=== PATIENT | male | born 1980 | race African-American/Black ===

== ENCOUNTER 2016-07-30 10:22 | Inpatient (IN) | payer OTHER ==
[2016-07-30 10:45] VITALS: BMI 25.8
--- NOTE | 2016-07-30 12:46 | HP ---
Admission [facility] Chief Complaint: REHAB TX FOR ALCOHOL DEPENDENCE Allergies/Adverse Reactions: Allergies Allergy/AdvReac Type Severity Reaction Status Date / Time lactose AdvReac indigestion Verified 07/30/16 11:12 NKDA Allergy Uncoded 07/30/16 11:12 History of Present Illness: 35 Y/O AA/MALE WITH A HX OF ALCOHOL DEPENDENCE SEEKING REHAB TX Exam Limitations: No Limitations - Ebola screening Have you traveled outside of the country in the last 21 days: No Have you had contact with anyone from an Ebola affected area: No Have you been sick,other than usual withdrawal symptoms: No Do you have a fever: No - Review of Systems Constitutional: No Symptoms Reported EENT: reports: Blurred Vision, Tearing (DUE TO ALLERGIES), Nose Congestion (DUE TO ALLERGIES), Dental Problems (BRACES IN PLACE.) Respiratory: reports: No Symptoms reported Cardiac: reports: Lightheadedness GI: reports: Diarrhea, Nausea, Poor Fluid Intake, Vomiting : reports: No Symptoms Reported Musculoskeletal: reports: Back Pain, Joint Pain, Muscle Pain Integumentary: reports: Dryness, Pruritus Neuro: reports: Headache Endocrine: reports: No Symptoms Reported Hematology: reports: No Symptoms Reported Psychiatric: reports: Orientated x3, Anxious Other Systems: Reviewed and Negative Patient History - Patient Medical History Hx Anemia: No Hx Asthma: No Hx Chronic Obstructive Pulmonary Disease (COPD): No Hx Cardiac Disorders: No Hx Hypertension: No Hx Hypercholesterolemia: No HX Cerebrovascular Accident: No Hx Seizures: No Hx Diabetes: No Hx Gastrointestinal Disorders: No Hx Genitourinary Disorders: Yes (HX UTI) Hx Sexually Transmitted Disorders: Yes (HX STD) Hx Renal Disease (ESRD): No Hx Thyroid Disease: Yes (HYPERTHYROID--ON TAPAZOLE) Hx Human Immunodeficiency Virus (HIV): No (NEGATIVE HX) Hx Hepatitis C: No Hx Depression: No Hx Suicide Attempt: No (DENIES) Hx Bipolar Disorder: No Hx Schizophrenia: No - Patient Surgical History Past Surgical History: No Hx Neurologic Surgery: No Hx Cataract Extraction: No Hx Cardiac Surgery: No Hx Lung Surgery: No Hx Breast Surgery: No Hx Breast Biopsy: No Hx Abdominal Surgery: No Hx Appendectomy: No Hx Cholecystectomy: No Hx Genitourinary Surgery: No Hx Orthopedic Surgery: No Anesthesia Reaction: No - PPD History Previous Implant?: Yes (LAST GIVE IN [facility]) Documented Results: Negative w/o proof Implanted On Prior R Admission?: No PPD to be Administered?: Yes - Reproductive History Patient is a Female of Child Bearing Age (11 -55 yrs old): No (MALE) - Smoking Cessation Smoking history: Never smoked Have you smoked in the past 12 months: No Aproximately how many cigarettes per day: 0 Hx Chewing Tobacco Use: No Initiated information on smoking cessation: No - Substance & Tx. History Hx Alcohol Use: Yes (BEER/WINE/LIQUOR) Substance Use Type: Alcohol Hx Substance Use Treatment: Yes ([facility]) - Substances Abused Alcohol Route: Oral Frequency: 1-2 times per week Amount used: 2 12oz//2 PT Age of first use: 16 Date of Last Use: 06/03/16 Family Disease History - Family Disease History Family Disease History: Diabetes: Father, Respiratory: Mother (EMPHYSEMA) Admission Physical Exam [facility] - Vital Signs Vital Signs: Vital Signs - 24 hr 07/30/16 10:41 Temperature 97.4 F L Pulse Rate 62 Respiratory 18 Rate Blood Pressure 114/69 - Physical General Appearance: Yes: No Apparent Distress, Irritable, Anxious HEENTM: Yes: EOMI, Normocephalic, SHILO, Pharynx Normal Respiratory: Yes: Chest Non-Tender, Lungs Clear, Normal Breath Sounds, No Respiratory Distress Neck: Yes: Supple, Trachea in good position Breast: Yes: Breast Exam Deferred Cardiology: Yes: Regular Rhythm, Regular Rate, S1, S2 Abdominal: Yes: Normal Bowel Sounds, Non Tender, Soft Genitourinary: Yes: Other (N/C) Back: Yes: Within Normal Limits Musculoskeletal: Yes: full range of Motion, Gait Steady Extremities: Yes: Normal Range of Motion, Non-Tender 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
[2016-07-30] MEDS ORDERED: MAG HYDROX/AL HYDROX/SIMETH 30 ML UNIT-DOSE CUP PO PRN (12:59)
[2016-07-30] MEDS ORDERED: hydrOXYzine PAMOATE 25 MG CAPSULE (FP) PO PRN (12:59)
[2016-07-30] MEDS ORDERED: guaiFENesin/D-METHORPHAN HB 10 ML UNIT-DOSE CUPS PO PRN (12:59)
[2016-07-30] MEDS ORDERED: LOPERAMIDE HCL 2 MG CAPSULE PO PRN (12:59)
[2016-07-30] MEDS ORDERED: diphenhydrAMINE HCL 50 MG CAPSULE PO PRN (12:59)
[2016-07-30] MEDS ORDERED: P-EPHED 60MG/TRIPROLIDI 2.5MG TABLET PO PRN (12:59)
[2016-07-30] MEDS ORDERED: MAGNESIUM CITRATE 300 ML BOTTLE PO PRN (12:59)
[2016-07-30] MEDS ORDERED: MENTHOL/PHENOL 1 EACH UD MM PRN (12:59)
[2016-07-30] MEDS ORDERED: ACETAMINOPHEN 325 MG TABLET (FP) PO PRN (12:59)
[2016-07-30] MEDS ORDERED: MAGNESIUM HYDROX 2400MG/30ML ORAL SUSPENSION 30 ML CUP PO PRN (12:59)
[2016-07-30] MEDS ORDERED: IBUPROFEN 400 MG TABLET (FP) PO PRN (12:59)
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
[2016-07-30 14:57] LABS: MCH 29.2 pg (25.7-33.7); MCHC 34.2 g/dl (32.0-35.9); MEAN CELL VOLUME 85.6 fl (80-96); PLATELET COUNT 144 K/MM3 (134-434); WHITE BLOOD COUNT 5.3 K/mm3 (4.0-10.0)
[2016-07-30 15:12] LABS: SICKLE CELL SCREEN NEGATIVE (NEGATIVE)
[2016-07-30 15:32] LABS: ALBUMIN 4.2 g/dl (3.4-5.0); ALK PHOS 68 U/L (45-117); ANION GAP 10 (8-16); BILIRUBIN,TOTAL 0.7 mg/dL (0.2-1.0); CALCIUM 9.1 mg/dL (8.5-10.1); CO2 28 mmol/L (21-32); CREATININE 1.1 mg/dL (0.7-1.3); GLUCOSE,RANDOM 99 mg/dL (74-106); SGOT/AST 23 U/L (15-37); SGPT/ALT 26 U/L (12-78); TOT PROT 7.4 g/dl (6.4-8.2)
--- NOTE | 2016-07-30 16:23 | EKG ---
Test Reason : Blood Pressure : / mmHG Vent. Rate : 064 BPM Atrial Rate : 064 BPM P-R Int : 186 ms QRS Dur : 096 ms QT Int : 410 ms P-R-T Axes : 036 059 080 degrees QTc Int : 422 ms POOR DATA QUALITY, INTERPRETATION MAY BE ADVERSELY AFFECTED NORMAL SINUS RHYTHM NORMAL ECG WHEN COMPARED WITH ECG OF 09-AUG-2015 23:41, CRITERIA FOR SEPTAL INFARCT ARE NO LONGER PRESENT Confirmed by ANGELINA SHIPLEY, URIAH ([id number]) on 07/30/2016 4:23:12 PM Referred By: Payal Hines Confirmed By:URIAH ALFARO MD
[2016-07-30 16:40] LABS: URINE APPEARANCE CLEAR; URINE BILIRUBIN NEGATIVE (NEGATIVE); URINE BLOOD NEGATIVE (NEGATIVE); URINE COLOR YELLOW; URINE GLUCOSE (UA) NEGATIVE (NEGATIVE); URINE KETONE NEGATIVE (NEGATIVE); URINE LEUK ESTERASE NEGATIVE (NEGATIVE); URINE NITRITE NEGATIVE (NEGATIVE); URINE PROTEIN NEGATIVE (NEGATIVE); URINE UROBILINOGEN NEGATIVE E.U./dl (0.2-1.0)
[2016-07-30] MEDS: THIAMINE HCL 100 MG TABLET (FP) PO SCH (22:33)
[2016-07-31] MEDS: PRENATAL VITAMINS W/ FOLIC ACID TABLET (FP) PO SCH (09:41)
[2016-07-31] MEDS: METHIMAZOLE PO SCH (09:41)
--- NOTE | 2016-07-31 11:06 | PN ---
[facility] Progress Note Note: mild pain in left knee,ambulation no limitation,movemant no limitation, treatment advise progressiv exercise
[2016-07-31] MEDS: THIAMINE HCL 100 MG TABLET (FP) PO SCH (21:56)
[2016-08-01] MEDS ORDERED: PT OWN MED DRAWER 7, Y5N ONE (08:54)
[2016-08-01] MEDS: METHIMAZOLE PO SCH (09:37)
[2016-08-01] MEDS: PRENATAL VITAMINS W/ FOLIC ACID TABLET (FP) PO SCH (09:37)
[2016-08-01] MEDS: THIAMINE HCL 100 MG TABLET (FP) PO SCH (22:23)
[2016-08-02] MEDS ORDERED: PT OWN MED DRAWER 7, Y5N ONE (08:49)
[2016-08-02] MEDS: PRENATAL VITAMINS W/ FOLIC ACID TABLET (FP) PO SCH (09:37)
[2016-08-02] MEDS: METHIMAZOLE PO SCH (09:37)
[2016-08-02] MEDS: THIAMINE HCL 100 MG TABLET (FP) PO SCH (23:22)
[2016-08-03] MEDS ORDERED: PT OWN MED DRAWER 7, Y5N ONE (08:40)
[2016-08-03] MEDS: PRENATAL VITAMINS W/ FOLIC ACID TABLET (FP) PO SCH (09:51)
[2016-08-03] MEDS: METHIMAZOLE PO SCH (09:51)
[2016-08-03] MEDS: THIAMINE HCL 100 MG TABLET (FP) PO SCH (21:53)
[2016-08-04] MEDS ORDERED: PT OWN MED DRAWER 7, Y5N ONE (08:51)
[2016-08-04] MEDS: PRENATAL VITAMINS W/ FOLIC ACID TABLET (FP) PO SCH (09:45)
[2016-08-04] MEDS: METHIMAZOLE PO SCH (09:45)
[2016-08-04] MEDS: THIAMINE HCL 100 MG TABLET (FP) PO SCH (23:06)
[2016-08-05] MEDS ORDERED: PT OWN MED DRAWER 7, Y5N ONE (08:56)
[2016-08-05] MEDS: PRENATAL VITAMINS W/ FOLIC ACID TABLET (FP) PO SCH (09:46)
[2016-08-05] MEDS: METHIMAZOLE PO SCH (09:47)
[2016-08-05] MEDS: THIAMINE HCL 100 MG TABLET (FP) PO SCH (22:48)
[2016-08-06] MEDS: PRENATAL VITAMINS W/ FOLIC ACID TABLET (FP) PO SCH (09:52)
[2016-08-06] MEDS ORDERED: PT OWN MED DRAWER 7, Y5N ONE (09:53)
[2016-08-06] MEDS: METHIMAZOLE PO SCH (09:53)
[2016-08-06] MEDS: THIAMINE HCL 100 MG TABLET (FP) PO SCH (23:09)
[2016-08-07] MEDS: METHIMAZOLE PO SCH (09:37)
[2016-08-07] MEDS: PRENATAL VITAMINS W/ FOLIC ACID TABLET (FP) PO SCH (09:37)
[2016-08-07] MEDS ORDERED: PT OWN MED DRAWER 7, Y5N ONE (09:38)
[2016-08-07] MEDS: THIAMINE HCL 100 MG TABLET (FP) PO SCH (22:24)
[2016-08-08] MEDS ORDERED: PT OWN MED DRAWER 7, Y5N ONE (08:37)
[2016-08-08] MEDS: PRENATAL VITAMINS W/ FOLIC ACID TABLET (FP) PO SCH (09:37)
[2016-08-08] MEDS: METHIMAZOLE PO SCH (09:37)
[2016-08-08] MEDS: THIAMINE HCL 100 MG TABLET (FP) PO SCH (23:06)
[2016-08-09] MEDS ORDERED: PT OWN MED DRAWER 7, Y5N ONE (08:38)
[2016-08-09] MEDS: PRENATAL VITAMINS W/ FOLIC ACID TABLET (FP) PO SCH (09:37)
[2016-08-09] MEDS: METHIMAZOLE PO SCH (09:37)
[2016-08-09] MEDS: THIAMINE HCL 100 MG TABLET (FP) PO SCH (22:24)
[2016-08-10] MEDS ORDERED: PT OWN MED DRAWER 7, Y5N ONE (08:40)
[2016-08-10] MEDS: PRENATAL VITAMINS W/ FOLIC ACID TABLET (FP) PO SCH (09:48)
[2016-08-10] MEDS: METHIMAZOLE PO SCH (09:48)
[2016-08-10] MEDS: THIAMINE HCL 100 MG TABLET (FP) PO SCH (22:24)
[2016-08-11] MEDS: PRENATAL VITAMINS W/ FOLIC ACID TABLET (FP) PO SCH (09:55)
[2016-08-11] MEDS: METHIMAZOLE PO SCH (09:56)
[2016-08-11] MEDS: THIAMINE HCL 100 MG TABLET (FP) PO SCH (23:18)
[2016-08-12] MEDS: METHIMAZOLE 10 MG TABLET (FP) PO SCH (11:00)
[2016-08-12] MEDS: PRENATAL VITAMINS W/ FOLIC ACID TABLET (FP) PO SCH (11:00)
[2016-08-12] MEDS: THIAMINE HCL 100 MG TABLET (FP) PO SCH (22:04)
[2016-08-13] MEDS: METHIMAZOLE 10 MG TABLET (FP) PO SCH (09:43)
[2016-08-13] MEDS: PRENATAL VITAMINS W/ FOLIC ACID TABLET (FP) PO SCH (09:43)
[2016-08-13] MEDS: THIAMINE HCL 100 MG TABLET (FP) PO SCH (23:16)
[2016-08-14] MEDS: PRENATAL VITAMINS W/ FOLIC ACID TABLET (FP) PO SCH (09:56)
[2016-08-14] MEDS: METHIMAZOLE 10 MG TABLET (FP) PO SCH (09:56)
[2016-08-14] MEDS: THIAMINE HCL 100 MG TABLET (FP) PO SCH (23:06)
[2016-08-15] MEDS: METHIMAZOLE 10 MG TABLET (FP) PO SCH (09:35)
[2016-08-15] MEDS: PRENATAL VITAMINS W/ FOLIC ACID TABLET (FP) PO SCH (09:35)
[2016-08-15] MEDS: THIAMINE HCL 100 MG TABLET (FP) PO SCH (21:59)
[2016-08-16] MEDS: METHIMAZOLE 10 MG TABLET (FP) PO SCH (09:40)
[2016-08-16] MEDS: PRENATAL VITAMINS W/ FOLIC ACID TABLET (FP) PO SCH (09:40)
[2016-08-16] MEDS: THIAMINE HCL 100 MG TABLET (FP) PO SCH (22:16)
[2016-08-17] MEDS: PRENATAL VITAMINS W/ FOLIC ACID TABLET (FP) PO SCH (10:04)
[2016-08-17] MEDS: METHIMAZOLE 10 MG TABLET (FP) PO SCH (10:04)
[2016-08-17] MEDS ORDERED: COLLOIDAL OATMEAL 1 BAR EACH TP PRN (14:06)
[2016-08-17] MEDS: THIAMINE HCL 100 MG TABLET (FP) PO SCH (21:52)
[2016-08-18] MEDS: METHIMAZOLE 10 MG TABLET (FP) PO SCH (09:45)
[2016-08-18] MEDS: PRENATAL VITAMINS W/ FOLIC ACID TABLET (FP) PO SCH (09:45)
[2016-08-18] MEDS: THIAMINE HCL 100 MG TABLET (FP) PO SCH (22:51)
[2016-08-19] MEDS: PRENATAL VITAMINS W/ FOLIC ACID TABLET (FP) PO SCH (09:33)
[2016-08-19] MEDS: METHIMAZOLE 10 MG TABLET (FP) PO SCH (09:33)
[2016-08-19] MEDS: THIAMINE HCL 100 MG TABLET (FP) PO SCH (23:37)
[2016-08-20] MEDS: PRENATAL VITAMINS W/ FOLIC ACID TABLET (FP) PO SCH (10:29)
[2016-08-20] MEDS: METHIMAZOLE 10 MG TABLET (FP) PO SCH (10:29)
[2016-08-20] MEDS: THIAMINE HCL 100 MG TABLET (FP) PO SCH (23:25)
[2016-08-21] MEDS: PRENATAL VITAMINS W/ FOLIC ACID TABLET (FP) PO SCH (09:52)
[2016-08-21] MEDS: METHIMAZOLE 10 MG TABLET (FP) PO SCH (09:54)
[2016-08-21] MEDS ORDERED: PT OWN MED DRAWER 7, Y5N ONE (11:06)
[2016-08-21] MEDS: THIAMINE HCL 100 MG TABLET (FP) PO SCH (22:32)
[2016-08-22] MEDS: PRENATAL VITAMINS W/ FOLIC ACID TABLET (FP) PO SCH (09:46)
[2016-08-22] MEDS: METHIMAZOLE 10 MG TABLET (FP) PO SCH (09:46)
[2016-08-22] MEDS: THIAMINE HCL 100 MG TABLET (FP) PO SCH (22:26)
[2016-08-23] MEDS: METHIMAZOLE 10 MG TABLET (FP) PO SCH (10:04)
[2016-08-23] MEDS: PRENATAL VITAMINS W/ FOLIC ACID TABLET (FP) PO SCH (10:04)
[2016-08-23] MEDS: THIAMINE HCL 100 MG TABLET (FP) PO SCH (22:42)
[2016-08-24] MEDS: PRENATAL VITAMINS W/ FOLIC ACID TABLET (FP) PO SCH (09:49)
[2016-08-24] MEDS: METHIMAZOLE 10 MG TABLET (FP) PO SCH (09:49)
[2016-08-24] MEDS: THIAMINE HCL 100 MG TABLET (FP) PO SCH (22:07)
[2016-08-25] MEDS: PRENATAL VITAMINS W/ FOLIC ACID TABLET (FP) PO SCH (09:52)
[2016-08-25] MEDS: METHIMAZOLE 10 MG TABLET (FP) PO SCH (09:53)
[2016-08-25] MEDS: THIAMINE HCL 100 MG TABLET (FP) PO SCH (22:16)
[2016-08-26] MEDS: METHIMAZOLE 10 MG TABLET (FP) PO SCH (09:51)
[2016-08-26] MEDS: PRENATAL VITAMINS W/ FOLIC ACID TABLET (FP) PO SCH (09:51)
--- NOTE | 2016-08-26 09:54 | PN ---
Psychiatric Progress Note Vital Signs: Vital Signs Period Temp Pulse Resp BP Sys/Harding Pulse Ox Last 24 Hr 97.7 F 81 18-18 143/78 Date of Session: 08/26/16 Chief Complaint:: Psychiatrist Discharge Note HPI: Patient addressing Alcohol Dependence comorbid with MDD, recurrent in full remission ROS: Hyperthyroidism were medically managed Current Medications: Active Medications Generic Name Dose Route Start Last Admin Trade Name Freq PRN Reason Stop Dose Admin Acetaminophen 650 mg 07/30/16 12:59 Tylenol - PO Q4H PRN PAIN Al Hydroxide/Mg Hydroxide 30 ml 07/30/16 12:59 Mylanta Oral Suspension - PO Q6H PRN DYSPEPSIA Colloidal Oatmeal 1 applic 08/17/16 14:06 08/17/16 22:00 Aveeno Soap - TP 1 applic DAILY PRN Administration HYGEINE Diphenhydramine HCl 50 mg 07/30/16 12:59 Benadryl - PO HSMR1 PRN INSOMNIA Eucalyptus/Menthol/Phenol/Sorbitol 1 each 07/30/16 12:59 Cepastat Lozenge - MM Q4H PRN SORE THROAT Guaifenesin 10 ml 07/30/16 12:59 Robitussin Dm - PO Q6H PRN COUGH Hydroxyzine Pamoate 25 mg 07/30/16 12:59 08/08/16 17:26 Vistaril - PO 25 mg Q4H PRN Administration AGITATION Ibuprofen 400 mg 07/30/16 12:59 Motrin - PO Q6H PRN SEVERE PAIN Loperamide HCl 4 mg 07/30/16 12:59 Imodium - PO Q6H PRN DIARRHEA Magnesium Citrate 300 ml 07/30/16 12:59 Citroma - PO Q48H PRN CONSTIPATION Magnesium Hydroxide 30 ml 07/30/16 12:59 Milk Of Magnesia - PO DAILY PRN CONSTIPATION Methimazole 10 mg 08/12/16 10:00 08/25/16 09:53 Tapazole - PO 10 mg DAILY RENNY Administration Multivit/Folic Acid/Iron 1 tab 07/31/16 10:00 08/25/16 09:52 Vitamins (Sjr) - PO 1 tab DAILY RENNY Administration Pseudoephedrine/Triprolidine 1 combo 07/30/16 12:59 Actifed - PO TID PRN NASAL CONGESTION Thiamine HCl 100 mg 07/30/16 22:00 08/25/16 22:16 Vitamin B1 - PO Not Given HS RENNY Current Side Effect: No Lab tests ordered: Yes Lab tests reviewed: Yes Provider note:: Patient will complete this program on 08/27/16. He has met his treatment goals and will continue to address his issues at outpatient treatment at [facility]. 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 He said that he has to find a way to stay clean in order to get these people off his back. He is stable for discharge on 08/27/16 Total face to face time:: 35 Psychiatric Treatment Plan - Problem List (1) Alcohol dependence with uncomplicated withdrawal Current Visit: Yes (2) MDD (major depressive disorder), recurrent, in full remission Current Visit: Yes (3) Hyperthyroidism Current Visit: Yes (4) Sexually transmitted disease Current Visit: No (5) Urinary tract infection Current Visit: No Initial treatment plan: Patient will be discharged tomorrow and referred to [facility]
[2016-08-27] MEDS: THIAMINE HCL 100 MG TABLET (FP) PO SCH (00:46)
[2016-08-27 07:48] VITALS: BP 128/79; PULSE 63; TEMP 97.8
[2016-08-27] MEDS: PRENATAL VITAMINS W/ FOLIC ACID TABLET (FP) PO SCH (09:18)
[2016-08-27] MEDS: METHIMAZOLE 10 MG TABLET (FP) PO SCH (09:18)
== END 2016-08-27 09:50 | disposition home or self-care (01) | DRG 772 ==
LOC: YASAS 10:22 → Y3W 11:20
PROVIDERS: ADMIT Psychiatry & Neurology Psychiatry; ATTEND Psychiatry & Neurology Psychiatry
PROC: HZ42ZZZ Group Counseling for Substance Abuse Treatment, Cognitive-Behavioral (ICD-10-PCS; principal; 2016-07-30)
DX: F10.20 Alcohol dependence, uncomplicated (principal); F33.42 Major depressive disorder, recurrent, in full remission; E03.9 Hypothyroidism, unspecified; Z87.440 Personal history of urinary (tract) infections; Z87.438 Personal history of other diseases of male genital organs
CPT/HCPCS: 36415; 80053; 81003; 85027; 85660; 86593; 93005; 93010

== ENCOUNTER 2017-08-03 15:52 | Emergency (ER) | payer OTHER ==
--- NOTE | 2017-08-03 16:05 | PDOC ---
Rapid Medical Evaluation Time Seen by Provider: 08/03/17 16:01 Medical Evaluation: Allergies Allergy/AdvReac Type Severity Reaction Status Date / Time lactose AdvReac indigestion Verified 07/30/16 11:12 NKDA Allergy Uncoded 07/30/16 11:12 08/03/17 16:01 The patient presents with a chief complaint of: [Headache, stomach upset for one week. + diarrhea ( two days ago) No N/V. No fever, had unprotected sex one week ago, concerned it is related. H/O Anxiety. ] I have performed a brief in-person evaluation of this patient. Pertinent physical exam findings: vss, deniesd abdominal pain, nontender, nondistended, RRR, Lungs clear. I have ordered the following: UA, Chlam, UC, RPR, HIV.] The patient will proceed to the ED for further evaluation. Discharge Disposition - Diagnosis Abdominal discomfort - Referrals - Patient Instructions - Post Discharge Activity
[2017-08-03 16:06] VITALS: BP 147/77; PULSE 80; TEMP 98.4; BMI 28.8
--- NOTE | 2017-08-03 16:32 | PDOC ---
History of Present Illness - General Chief Complaint: Pain, Acute Stated Complaint: HEADACHE, ABD PAIN Time Seen by Provider: 08/03/17 16:01 - History of Present Illness Initial Comments: 08/03/17 16:50 Mr. Jones is a 36 yo male w/ pmh of hyperthyroidism as well as schizophrenia who presents complaining of upset stomach (mild diarrhea with associated nausea) with intermittent mild headache for the last week. He reports that one week ago he had unprotected sex with a friend of his and he is concerned that he may have contracted an STI. He also reports that he has stopped drinking and using marijuana as well as stopped his psych medications around this same time period. He reports he stopped using his psych meds as he started drinking and didn't want to mix, but then stopped drinking and hasn't restarted his medications (could not remember the name). He currently feels ok as he reports he ate a good meal today which helped his symptoms. The patient denies chest pain, shortness of breath, headache and dizziness. Denies fever, chills, vomit, and constipation. Denies dysuria, frequency, urgency and hematuria. Allergies: NKDA 08/03/17 18:09 Past History - Past Medical History Allergies/Adverse Reactions: Allergies Allergy/AdvReac Type Severity Reaction Status Date / Time lactose AdvReac indigestion Verified 07/30/16 11:12 NKDA Allergy Uncoded 07/30/16 11:12 Home Medications: Ambulatory Orders Methimazole [Tapazole -] 10 mg PO DAILY 07/30/16 Methimazole [Tapazole -] 10 mg PO DAILY #30 tablet 08/26/16 Anemia: No Asthma: No Cardiac Disorders: No CVA: No COPD: No Diabetes: No GI Disorders: No Disorders: Yes (HX UTI) HTN: No Hypercholesterolemia: No Kidney Stones: No Seizures: No Thyroid Disease: Yes (HYPERTHYROID--ON TAPAZOLE) - Surgical History Abdominal Surgery: No Appendectomy: No Cardiac Surgery: No Cholecystectomy: No Lung Surgery: No Neurologic Surgery: No Orthopedic Surgery: No - Suicide/Smoking/Psychosocial Hx Smoking Status: No Smoking History: Never smoked Have you smoked in the past 12 months: No Number of Cigarettes Smoked Daily: 4 Information on smoking cessation initiated: No Hx Alcohol Use: Yes Drug/Substance Use Hx: Yes (marijuana) Substance Use Type: Alcohol, Marijuana Hx Substance Use Treatment: Yes ([facility]) Review of Systems - Review of Systems Comments:: 08/03/17 16:59 GENERAL/CONSTITUTIONAL: No fever or chills. No weakness. HEAD, EYES, EARS, NOSE AND THROAT: No change in vision. No ear pain or discharge. No sore throat. CARDIOVASCULAR: No chest pain or shortness of breath RESPIRATORY: No cough, wheezing, or hemoptysis. GASTROINTESTINAL: +Mild nausea with diarrhea as described, novomiting or constipation. GENITOURINARY: No dysuria, frequency, or change in urination. MUSCULOSKELETAL: No joint or muscle swelling or pain. No neck or back pain. SKIN: No rash NEUROLOGIC: No headache, vertigo, loss of consciousness, or change in strength/ sensation. ENDOCRINE: No increased thirst. No abnormal weight change HEMATOLOGIC/LYMPHATIC: No anemia, easy bleeding, or history of blood clots. ALLERGIC/IMMUNOLOGIC: No hives or skin allergy. *Physical Exam - Vital Signs Last Vital Signs Temp Pulse Resp BP Pulse Ox 98.4 F 80 18 147/77 100 08/03/17 16:02 08/03/17 16:02 08/03/17 16:02 08/03/17 16:02 08/03/17 16:02 - Physical Exam Comments: 08/03/17 17:00 GENERAL: Awake, alert, and fully oriented, in no acute distress HEAD: No signs of trauma, normocephalic, atraumatic EYES: PERRLA, EOMI, sclera anicteric, conjunctiva clear ENT: Auricles normal inspection, hearing grossly normal, nares patent, oropharynx clear without exudates. Moist mucosa NECK: Normal ROM, supple, no lymphadenopathy, JVD, or masses LUNGS: No distress, speaks full sentences, clear to auscultation bilaterally HEART: Regular rate and rhythm, normal S1 and S2, no murmurs, rubs or gallops, peripheral pulses normal and equal bilaterally. ABDOMEN: Soft, nontender, normoactive bowel sounds. No guarding, no rebound. No masses EXTREMITIES: Normal inspection, Normal range of motion, no edema. No clubbing or cyanosis. NEUROLOGICAL: Cranial nerves II through XII grossly intact. Normal speech, normal gait, no focal sensorimotor deficits SKIN: Warm, Dry, normal turgor, no rashes or lesions noted. ED Treatment Course - LABORATORY CBC & Chemistry Diagram: 08/03/17 16:15 08/03/17 16:15 Medical Decision Making - Medical Decision Making 08/03/17 17:00 Mr. Jones is a 36 yo male w/ pmh as described who presents for evaluation of mild abdominal discomfort over the past week. Labs sent for CBC/CMP and to evaluate for STIs as well as TSH to evaluate for patient thyroid status. 08/03/17 17:03 Rocephin and zithromax given for empiric ABX treatment. 08/03/17 18:10 Patient labs grossly wnl as below. Low TSH consistent w/ patient's hyperthyroidism. Instructed patient to follow-up with PCP for further evaluation regarding this. Patient verbalized understanding and agreement and will comply. Patient stable, discharging to home and hospital will contact if any abnormal labs for STI's which take several days. *DC/Admit/Observation/Transfer Diagnosis at time of Disposition: Abdominal discomfort - Discharge Dispostion Disposition: HOME - Referrals Referrals: Elvis Saxena [Primary Care Provider] - - Patient Instructions Printed Discharge Instructions: DI for Abdominal Pain-Adult Additional Instructions: Please return if any increase in pain, fever, chills, or other concerning symptoms. Follow-up with primary care provider as discussed. You will be contacted if there is any abnormality with your pending STI labs. - Post Discharge Activity
[2017-08-03 16:38] LABS: BASO % 0.5 % (0-2.0); EOS % 2.4 % (0-4.5); HEMATOCRIT 45.5 % (35.4-49); HEMOGLOBIN 15.8 GM/dL (11.7-16.9); MCH 29.8 pg (25.7-33.7); MCHC 34.6 g/dl (32.0-35.9); MEAN CELL VOLUME 86.2 fl (80-96); MEAN PLT VOLUME 9.7 fl (7.5-11.1); MONO % 7.8 % (3.8-10.2); NEUT % 58.3 % (42.8-82.8); PLATELET COUNT 147 K/MM3 (134-434); RBC 5.28 M/mm3 (4.00-5.60); RDW 13.1 % (11.9-15.9)
[2017-08-03 16:59] LABS: URINE APPEARANCE CLEAR; URINE BILIRUBIN NEGATIVE (NEGATIVE); URINE BLOOD NEGATIVE (NEGATIVE); URINE COLOR YELLOW; URINE GLUCOSE (UA) NEGATIVE (NEGATIVE); URINE KETONE NEGATIVE (NEGATIVE); URINE LEUK ESTERASE NEGATIVE (NEGATIVE); URINE NITRITE NEGATIVE (NEGATIVE); URINE UROBILINOGEN 4.0 E.U/dl mg/dL (0.2-1.0)
[2017-08-03 17:01] LABS: URINE PROTEIN 1+ (NEGATIVE)
[2017-08-03] MEDS ORDERED: AZITHROMYCIN 1 GM PACKET PO ONE (17:02)
[2017-08-03 17:04] LABS: EPI CELLS RARE /HPF (FEW); URINE MUCUS MODERATE
[2017-08-03 17:11] LABS: ALBUMIN 4.1 g/dl (3.4-5.0); ALK PHOS 79 U/L (45-117); ANION GAP 5 (8-16); BILIRUBIN,TOTAL 0.3 mg/dL (0.2-1.0); BLOOD UREA NITROGEN 13 mg/dL (7-18); CALCIUM 8.8 mg/dL (8.5-10.1); CHLORIDE 105 mmol/L (98-107); CO2 29 mmol/L (21-32); CREATININE 1.1 mg/dL (0.7-1.3); GLUCOSE,RANDOM 72 mg/dL (74-106); SGOT/AST 95 U/L (15-37); SGPT/ALT 28 U/L (12-78); SODIUM 139 mmol/L (136-145); TOT PROT 7.7 g/dl (6.4-8.2)
--- NOTE | 2017-08-03 17:11 | PDOC ---
Attending Attestation - HPI HPI: 08/03/17 17:15 The patient is a 36 year old male with past medical history of hypothyroidism and schizophrenia who presents to the ED with complaints of nausea and diarrhea x1 week. The patient also reports intermittent headache as well for the course of the week. The patient also reports that one week ago he had unprotected sex and is now concerned that he has contracted and STI. Currently the patient states he feels better after eating a meal. The patient denies any fever, chills , vomiting, melena, hematochezia, shortness of breath, cough, chest pain, or urinary symptoms. PCP: Dr. Elvis Saxena - Physicial Exam PE: 08/03/17 17:32 GENERAL: Well-appearing, well-nourished. No apparent distress. HEENT: Normocephalic, atraumatic. PERRL, EOM intact. CARDIOVASCULAR: Normal S1, S2. Regular rate and rhythm. PULMONARY: Clear to auscultation bilaterally. ABDOMEN: Soft, non-distended, non-tender. EXTREMITIES: Normal ROM in all four extremities. No gross deformities. SKIN: Warm, dry. No rash NEUROLOGICAL: No focal neurological deficits. - Medical Decision Making 08/03/17 17:32 Documentation prepared by Makenzie Dejesus, acting as medical health researcher for Opal Wiley MD. <Makenzie Dejesus - Last Filed: 08/03/17 17:15> - Resident Resident Name: [email or web address] - ED Attending Attestation I have performed the following: I have examined & evaluated the patient, The case was reviewed & discussed with the resident, I agree w/resident's findings & plan, Exceptions are as noted - Medical Decision Making 08/03/17 18:11 labs reviewed,glu=72,pt will eat soon empiric antibiotics for suspected STI discharged home <Opal Wiley - Last Filed: 08/03/17 18:12>
[2017-08-03] MEDS ORDERED: AZITHROMYCIN 250 MG TABLET ONE (18:03)
[2017-08-03] MEDS ORDERED: cefTRIAXone SODIUM 1 GM VIAL ONE (18:03)
== END 2017-08-03 18:10 | disposition home or self-care (01) ==
LOC: JER 15:52
DX: R10.9 Unspecified abdominal pain (principal); E05.90 Thyrotoxicosis, unspecified without thyrotoxic crisis or storm
CPT/HCPCS: 36415; 80053; 81003; 81015; 84443; 85025; 86593; 87086; 87389; 87491; 87591; 99281-25

== ENCOUNTER 2021-05-10 23:04 | Emergency (ER) | payer OTHER ==
[2021-05-10 23:22] VITALS: BP 100/65; PULSE 84; TEMP 98.3; BMI 28.1
[2021-05-11 01:03] LABS: VENOUS BASE EXCESS 0.1 mmol/L (-2-2); VENOUS O2 SATURATION 76.2 % (70-80); VENOUS PCO2 48.1 mmHg (38-52); VENOUS PH 7.355 (7.310-7.410)
[2021-05-11 01:14] LABS: HEMATOCRIT 41.8 % (35.4-49); HEMOGLOBIN 14.1 GM/dL (11.7-16.9); MCH 28.9 pg (25.7-33.7); MCHC 33.8 g/dl (32.0-35.9); MEAN CELL VOLUME 85.4 fl (80-96); MEAN PLT VOLUME 9.3 fl (7.5-11.1); PLATELET COUNT 124 10^3/uL (134-434); RDW 13.7 % (11.9-15.9); WHITE BLOOD COUNT 5.2 K/mm3 (4.0-10.0)
[2021-05-11 01:35] LABS: CHLORIDE 107 mmol/L (98-107); SODIUM 139 mmol/L (136-145)
[2021-05-11 01:38] LABS: ALBUMIN 3.5 g/dl (3.4-5.0); ANION GAP 8 MMOL/L (8-16); BLOOD UREA NITROGEN 15.5 mg/dL (7-18); CALCIUM 8.9 mg/dL (8.5-10.1); CO2 24 mmol/L (21-32); GLUCOSE,RANDOM 90 mg/dL (74-106)
[2021-05-11 01:42] LABS: SGOT/AST 33 U/L (15-37); SGPT/ALT 55 U/L (13-61)
[2021-05-11 01:44] LABS: BILIRUBIN,TOTAL 0.3 mg/dL (0.2-1); TOT PROT 7.4 g/dl (6.4-8.2)
[2021-05-11 01:45] LABS: ALK PHOS 70 U/L (45-117)
== END 2021-05-11 02:55 | disposition home or self-care (01) ==
LOC: JER 23:04
DX: R05.1 Acute cough (principal)
CPT/HCPCS: 36415; 71046-TC-FY; 80053; 82375; 82550; 82553; 82803; 83605; 84484; 85027; 87804; 87807; 93005; 93010; 99285-25; C9803; U0003; U0005